=== PATIENT | female | born 1990 | race African-American/Black ===

== ENCOUNTER 2022-07-13 18:10 | Emergency (ER) | payer SELFPAY ==
[~2022-07-13] VITALS: Ht 162.6 cm; Wt 145.5 kg
[~2022-07-13 18:10] MED LIST: AUGMENTIN875TAB PO; BENTYL10 MG PO; BENZONATATE200 MG PO; LORTAB5 PO; PRENA1/QUATREFOLIC
[2022-07-13 19:00] LABS: HEMATOCRIT 37.5 % (37.0-47.0); HEMOGLOBIN 12.6 g/dl (12.0-16.0); IMMATURE GRANULOCYTES 0.2 % (0.0-5.0); MEAN CELL VOLUME 85.8 fL CALC (80.0-100.0); MEAN CORPUSCULAR HGB 28.8 pG CALC (26.0-32.0); MEAN CORPUSCULAR HGB CONC 33.6 g/dL CAL (32.0-36.0); NEUT# 9.19 thou/uL (2.00-7.15); RED BLOOD COUNT 4.37 mill/uL (4.20-5.60); RED CELL DISTRI WIDTH 12.9 % (11.5-15.5)
[2022-07-13 19:09] LABS: BUN 18 mg/dL (7-17); BUN/CREATININE RATIO 25 (12-20 (CALC)); CARBON DIOXIDE 27 mmol/l (22-30); CHLORIDE 105 mmol/l (95-108); CREATININE 0.7 mg/dL (0.5-1.0); GFR FOR AFR.AMER. > 60 ML/MIN (>=60 (CALC)); GFR OTHER RACES > 60 ML/MIN (>=60 (CALC)); POTASSIUM 4.2 mmol/l (3.5-5.1); SGOT/AST 33 u/l (14-36); TOTAL PROTEIN 7.7 g/dL (6.3-8.2)
[2022-07-13 19:11] LABS: ALBUMIN 4.4 g/dL (3.2-5.0); ALKALINE PHOSPHATASE 86 u/l (38-126); ANION GAP 14 (6-22 (CALC)); BILIRUBIN, TOTAL 0.2 mg/dL (0.0-1.4); SODIUM 142 mmol/l (137-146)
[2022-07-13] MEDS ORDERED: NAPROXEN500 MG PO (20:39)
[2022-07-13 20:49] VITALS: BP 162/91
== END 2022-07-13 20:56 | disposition home or self-care (01) | DRG 313 ==
LOC: ED 18:10
PROVIDERS: Emergency Medicine
DX: R07.89 Other chest pain (principal); I10 Essential (primary) hypertension

== ENCOUNTER 2023-05-01 02:16 | Emergency (ER) | payer SELFPAY ==
[~2023-05-01] VITALS: Ht 162.6 cm; Wt 163.0 kg
[~2023-05-01 02:16] MED LIST changes: +NAPROXEN500 MG PO
[2023-05-01 02:25] VITALS: BP 147/79
[2023-05-01 02:31] VITALS: BP 163/86
[2023-05-01 02:46] VITALS: BP 165/81
[2023-05-01] MEDS ORDERED: PAXLOVID PO (03:07)
[2023-05-01] MEDS ORDERED: ZITHROMAX Z-PA250 MG PO (03:26)
[2023-05-01 03:32] VITALS: BP 165/81
== END 2023-05-01 03:58 | disposition home or self-care (01) | DRG 179 ==
LOC: ED 02:16
DX: U07.1 COVID-19 (principal); R05.9 Cough, unspecified; M79.10 Myalgia, unspecified site; I10 Essential (primary) hypertension